=== PATIENT | male | born 1955 | race Two or more races ===

== ENCOUNTER → 2017-04-04 | Emergency (ER) | payer OTHER ==
[~2017-04-04] MED LIST: AMOX1TAB12 PO; CLONAZEPAM0.125 MG/T; CONEX TABLET1 EACH PO; FLONASE16 GM NASAL; LEXAPRO5 MG; TUSICOF LIQUID120 ML PO; TUSSIONEX PENNKI5 ML PO; XANAX1 MG PO
== END | disposition home or self-care (01) ==
LOC: ER 12:16
DX: K29.60 Other gastritis without bleeding (principal); R10.84 Generalized abdominal pain

== ENCOUNTER 2017-12-18 14:14 | Emergency (ER) | payer OTHER ==
[~2017-12-18] VITALS: Ht 175.3 cm; Wt 89.8 kg
[2017-12-18] MEDS ORDERED: FLAGYL500MG PO (14:24)
[2017-12-18] MEDS ORDERED: CIPRO500 MG PO (14:24)
== END 2017-12-18 20:51 | disposition home or self-care (01) ==
LOC: ER 14:14
DX: K57.32 Diverticulitis of large intestine without perforation or abscess without bleeding (principal); R10.32 Left lower quadrant pain

== ENCOUNTER 2020-02-03 12:21 | Emergency (ER) | payer OTHER ==
[~2020-02-03] VITALS: Ht 177.8 cm; Wt 88.5 kg
[~2020-02-03 12:21] MED LIST changes: +CIPRO500 MG PO; +FLAGYL500MG PO
== END 2020-02-03 16:53 | disposition home or self-care (01) ==
LOC: ER 12:21
DX: B34.9 Viral infection, unspecified (principal); Z20.828 Contact with and (suspected) exposure to other viral communicable diseases

== ENCOUNTER 2024-05-06 14:50 | Inpatient (IN) | payer OTHER ==
[~2024-05-06] VITALS: Ht 177.8 cm; Wt 86.2 kg
[~2024-05-06 14:50] MED LIST changes: +EFFEXOR XR75 MG
[2024-05-06] MEDS ORDERED: ONDANSETRON HCL 2 MG/ML VIAL IV STA (15:21)
[2024-05-06] MEDS ORDERED: 0.9 % SODIUM CHLORIDE 1,000 ML IV STA (15:21)
[2024-05-06] MEDS ORDERED: ONDANSETRON HCL 2 MG/ML VIAL ONE (15:33)
[2024-05-06] MEDS ORDERED: MORPHINE SULFATE 4 MG/ML CARTRIDGE IV STA (15:57)
[2024-05-06 16:05] LABS: HEMATOCRIT 52.1 % (39.0-48.0); HEMOGLOBIN 17.5 g/dL (13-16.00); MEAN CELL VOLUME 88.2 fL (80.0-100.00); MEAN CORPUSCULAR HEMOGLOBIN 29.6 pg (27.00-32.0); MEAN CORPUSCULAR HGB CONC 33.6 g/dl (32.0-36.0); PLATELET COUNT 241 K/uL (150-450); RED CELL DISTRIBUTION WIDTH 13.7 % (11.5-14.5)
[2024-05-06 16:29] LABS: ALBUMIN 4.8 gm/dL (3.4-5.0); BILIRUBIN TOTAL 1.3 mg/dL (0.3-1.2); CALCIUM 10.3 mg/dL (8.5-10.1); CREATININE SERUM 1.27 mg/dL (0.70-1.30); GFR 56.74; GLOBULINA 3.9 G/DL (2.4-3.5); POTASSIUM 4.15 mEq/L (3.5-5.1); TOTAL PROTEIN 8.7 gm/dL (6.4-8.2)
[2024-05-06] MEDS ORDERED: CIPROFLOXACIN IN 5 % DEXTROSE 400 MG/200 ML PIGGYBAG IV STA (16:56)
[2024-05-06] MEDS ORDERED: KETOROLAC TROMETHAMINE 30 MG VIAL IV ONE (17:45)
[2024-05-06] MEDS ORDERED: PROMETHAZINE HCL 50 MG/ML AMPUL IM ONE ×2 (17:45→18:16)
[2024-05-06] MEDS ORDERED: BARIUM SULFATE 450 ML ORAL.SUSP PO ONE (17:55)
[2024-05-06] MEDS ORDERED: KETOROLAC TROMETHAMINE 30 MG VIAL ONE (18:16)
[2024-05-06] MEDS ORDERED: METRONIDAZOLE/SODIUM CHLORIDE 100 ML IV SCH (19:56)
[2024-05-06] MEDS ORDERED: FAMOTIDINE/PF 20 MG in 0.9 % SODIUM CHLORIDE 8 ML IV PUSH SCH (19:57)
[2024-05-06] MEDS ORDERED: 0.9 % SODIUM CHLORIDE 1,000 ML IV SCH (20:00)
[2024-05-06] MEDS ORDERED: ACETAMINOPHEN 500 MG GEL..CAP PO PRN (20:00)
[2024-05-06] MEDS ORDERED: ONDANSETRON HCL 4 MG in 0.9 % SODIUM CHLORIDE 50 ML IV PRN (20:00)
[2024-05-06] MEDS ORDERED: MEPERIDINE HCL/PF 25 MG/ML VIAL IM PRN (20:00)
[2024-05-06] MEDS ORDERED: FAMOTIDINE/PF 20 MG/2 ML VIAL ONE (20:35)
[2024-05-06] MEDS ORDERED: METRONIDAZOLE/SODIUM CHLORIDE 500 MG/100 ML PIGGYBACK IV ONE (20:35)
[2024-05-06] MEDS ORDERED: CIPROFLOXACIN IN 5 % DEXTROSE 400 MG/200 ML PIGGYBAG IV ONE (20:35)
[2024-05-06 20:53] LABS: INR 1.18; PARTIAL THROMBOPLASTIN TIME 26.7 SECONDS (22.0-34.0); PROTHROMBIN TIME 12.7 SECONDS (9.0-11.5)
[2024-05-06] MEDS ORDERED: CIPROFLOXACIN IN 5 % DEXTROSE 200 ML IV SCH (21:00)
[2024-05-06 21:44] LABS: PH,URINE 5.5 (5.0-8.0); URINE APPEARANCE Clear; URINE BILIRRUBIN Negative (NEGATIVE); URINE BLOOD Negative; URINE COLOR Yellow; URINE GLUCOSE Negative (NEGATIVE); URINE KETONE Trace (NEGATIVE); URINE LEUKOCYTE Negative; URINE NITRATE Negative; URINE PROTEIN Trace (NEGATIVE); URINE UROBILINOGEN 0.2 E.U./dl
[2024-05-06 21:48] LABS: URINE RBC 20.1 uL (0.0-20.8); URINE WBC 2.5 uL (0.0-23.2)
[2024-05-06 21:50] LABS: URINE BACTERIA 0 uL (0.0-1933); URINE EPITHELIAL CELLS 0.4 uL (0.0-38.8)
[2024-05-06 23:52] VITALS: BP 128/69; O2SAT 95
[2024-05-07] MEDS ORDERED: ONDANSETRON HCL 2 MG/ML VIAL ONE (00:44)
[2024-05-07] MEDS ORDERED: FAMOTIDINE/PF 20 MG/2 ML VIAL ONE (00:44)
[2024-05-07 08:08] VITALS: BP 126/70; O2SAT 99
[2024-05-07] MEDS ORDERED: FAMOTIDINE/PF 20 MG in 0.9 % SODIUM CHLORIDE 8 ML IV PUSH SCH (09:00)
[2024-05-07] MEDS ORDERED: ENOXAPARIN SODIUM 40 MG/0.4 ML SYRINGE SUBCUTANEO SCH (09:00)
[2024-05-07] MEDS ORDERED: 0.9 % SODIUM CHLORIDE 1,000 ML IV SCH (09:00)
[2024-05-07 11:29] LABS: ob POSITIVE (NEGATIVE)
[2024-05-07 13:19] LABS: FECAL LEUKOCYTES POSITIVE (NEGATIVE)
[2024-05-07] MEDS ORDERED: CEFTRIAXONE SODIUM 2,000 MG VIAL IV SCH (17:00)
[2024-05-07 17:43] VITALS: BP 148/68
[2024-05-08 01:18] VITALS: BP 93/55
[2024-05-08 06:29] LABS: HEMATOCRIT 43.8 % (39.0-48.0); HEMOGLOBIN 15.2 g/dL (13-16.00); MEAN CELL VOLUME 86.9 fL (80.0-100.00); MEAN CORPUSCULAR HEMOGLOBIN 30.1 pg (27.00-32.0); MEAN CORPUSCULAR HGB CONC 34.6 g/dl (32.0-36.0); PLATELET COUNT 176 K/uL (150-450); RED BLOOD COUNT 5.04 M/uL (4.00-6.00); RED CELL DISTRIBUTION WIDTH 13.7 % (11.5-14.5)
[2024-05-08 07:03] LABS: ALBUMIN 3.5 gm/dL (3.4-5.0); BILIRUBIN TOTAL 0.54 mg/dL (0.3-1.2); CALCIUM 8.7 mg/dL (8.5-10.1); CREATININE SERUM 1.1 mg/dL (0.70-1.30); GFR 66.97; MAGNESIUM 2.1 mg/dL (1.8-2.4); PHOSPHOROUS 2.5 mg/dL (2.5-4.9); POTASSIUM 4.26 mEq/L (3.5-5.1); TOTAL PROTEIN 6.5 gm/dL (6.4-8.2)
[2024-05-08 07:08] LABS: C-REACTIVE PROTEIN 0.97 MG/DL (0.00-0.29)
[2024-05-08] MEDS ORDERED: HYOSCYAMINE SULFATE 0.125 MG TAB.SUBL SL PRN (07:45)
[2024-05-08 08:03] VITALS: BP 115/66
[2024-05-08] MEDS ORDERED: LACTOBACILLUS ACIDOPHILUS 1 CAP CAP PO SCH (09:00)
[2024-05-08] MEDS ORDERED: INTESTINEX680 M1 PO (11:46)
[2024-05-08] MEDS ORDERED: AMOXICILLIN875 MG PO (11:53)
[2024-05-08] MEDS ORDERED: FAMOtidine 40 MG TABLET PO SCH (21:00)
== END 2024-05-08 13:00 | disposition home or self-care (01) | DRG 392 ==
LOC: ER 14:51 → SEC-K 20:11 → MEDI 20:11
PROVIDERS: Emergency Medicine; General Practice; Internal Medicine Infectious Disease; ADMIT Internal Medicine; ATTEND Internal Medicine
PROC: BW21Y0Z Computerized Tomography (CT Scan) of Abdomen and Pelvis using Other Contrast, Unenhanced and Enhanced (ICD-10-PCS; principal; 2024-05-06)
DX: K52.9 Noninfective gastroenteritis and colitis, unspecified (principal); N17.9 Acute kidney failure, unspecified; R65.10 Systemic inflammatory response syndrome (SIRS) of non-infectious origin without acute organ dysfunction; R10.9 Unspecified abdominal pain; E86.0 Dehydration; R10.32 Left lower quadrant pain

== ENCOUNTER 2024-09-04 11:15 | Inpatient (IN) | payer OTHER ==
[~2024-09-04] VITALS: Ht 177.8 cm; Wt 86.2 kg
[~2024-09-04 11:15] MED LIST changes: +AMOXICILLIN875 MG PO; +INTESTINEX680 M1 PO
[2024-09-04] MEDS ORDERED: CLONAZEPAM0.5 M1 PO (13:08)
[2024-09-04 13:09] VITALS: BP 128/79
[2024-09-11] MEDS ORDERED: CEFTRIAXONE SODIUM 2,000 MG VIAL ONE (08:26)
[2024-09-11] MEDS ORDERED: METRONIDAZOLE/SODIUM CHLORIDE 500 MG/100 ML PIGGYBACK IV ONE ×2 (08:26→17:43)
[2024-09-11] MEDS ORDERED: BUPIVACAINE HCL/MPF 0.5% 30ML VIAL ONE (10:34)
[2024-09-11] MEDS ORDERED: LIDOCAINE HCL 1%/EPINEPHRINE 20ML VIAL IJ ONE (10:34)
[2024-09-11] MEDS ORDERED: SUGAMMADEX SODIUM 200 MG/2 ML VIAL IV ONE (12:58)
[2024-09-11] MEDS ORDERED: ONDANSETRON HCL 2 MG/ML VIAL IV PRN (14:00)
[2024-09-11] MEDS ORDERED: OxyCODONE HCL 5 MG TABLET (ROXICODONE) PO PRN (14:00)
[2024-09-11] MEDS ORDERED: ACETAMINOPHEN 500 MG GEL..CAP PO SCH (14:00)
[2024-09-11] MEDS ORDERED: MORPHINE SULFATE 4 MG/ML CARTRIDGE IV PRN (14:00)
[2024-09-11] MEDS ORDERED: DEXTROSE 50 % IN WATER 0.5 G/ML VIAL IV PRN (14:00)
[2024-09-11] MEDS ORDERED: 0.9 % SODIUM CHLORIDE 1,000 ML IV SCH (14:00)
[2024-09-11] MEDS ORDERED: MORPHINE SULFATE 4 MG/ML VIAL IV ONE ×2 (14:50→15:20)
[2024-09-11] MEDS ORDERED: GABAPENTIN 300 MG CAPSULE PO SCH (17:00)
[2024-09-11] MEDS ORDERED: HYOSCYAMINE SULFATE 0.125 MG TAB.SUBL SL SCH (17:00)
[2024-09-11] MEDS ORDERED: METRONIDAZOLE/SODIUM CHLORIDE 500 MG/100 ML PIGGYBACK IV SCH (17:00)
[2024-09-11 19:17] LABS: BASO % 0.2 % (0.1-1.2); EOS # 0.00 (0.04-0.54); EOS % 0.0 % (0.7-7.0); LYMPH # 0.70 (1.18-3.74); LYMPH % 4.1 % (19.3-53.1); MEAN PLATELET VOLUME 10.00 fl (9.4-12.4); MONO # 1.62 (0.24-0.82); MONO % 9.6 % (4.7-12.5); NEUT # 14.49 (1.56-6.13); NEUT % 85.6 % (34.0-71.1); RED CELL DISTRIBUTION WIDTH 13.1 % (11.6-14.4)
[2024-09-11 19:39] LABS: BUN CREA RATIO 13.0 (7.0-25.0); CREATININE SERUM 0.99 mg/dL (0.70-1.30); GFR 75.63; GLUCOSE FASTING 137.0 mg/dL (65-100); OSMOLALITY SERUM 282.0 MOSM/KG (275-295)
[2024-09-11 19:56] LABS: BAND MAN 8.0 %; LYMPHOCYTE MAN 8.0 %; MONOCYTE MAN 7.0 %; NEUTROPHILS MAN 75.0 %
[2024-09-11] MEDS ORDERED: CELECOXIB 200 MG CAPSULE PO SCH (21:00)
[2024-09-11] MEDS ORDERED: FAMOTIDINE/PF 20 MG/2 ML VIAL IV PUSH SCH (21:00)
[2024-09-12] VITALS: BP 149/75; O2SAT 95
[2024-09-12 06:43] LABS: BASO % 0.2 % (0.1-1.2); EOS # 0.00 (0.04-0.54); EOS % 0.0 % (0.7-7.0); LYMPH # 1.03 (1.18-3.74); LYMPH % 6.3 % (19.3-53.1); MEAN PLATELET VOLUME 10.50 fl (9.4-12.4); MONO # 1.77 (0.24-0.82); MONO % 10.9 % (4.7-12.5); NEUT # 13.36 (1.56-6.13); NEUT % 82.2 % (34.0-71.1); RED CELL DISTRIBUTION WIDTH 13.1 % (11.6-14.4)
[2024-09-12 07:16] LABS: BUN CREA RATIO 10.0 (7.0-25.0); CREATININE SERUM 0.94 mg/dL (0.70-1.30); GFR 80.29; GLUCOSE FASTING 134.0 mg/dL (65-100); OSMOLALITY SERUM 278.0 MOSM/KG (275-295)
[2024-09-12 08:30] VITALS: BP 125/73
[2024-09-12 15:53] VITALS: BP 136/67; O2SAT 96
[2024-09-12] MEDS ORDERED: ENOXAPARIN SODIUM 40 MG/0.4 ML SYRINGE SUBCUTANEO SCH (17:00)
[2024-09-13 00:14] VITALS: BP 124/66; O2SAT 96
[2024-09-13] MEDS ORDERED: ENOXAPARIN SODIUM 40 MG/0.4 ML SYRINGE SUBCUTANEO SCH (09:00)
[2024-09-13 09:48] VITALS: BP 170/80; O2SAT 96
[2024-09-13] MEDS ORDERED: TRAMADOL HCL 50 MG TABLET PO PRN (14:00)
[2024-09-13] MEDS ORDERED: CYCLOBENZAPRINE HCL 5 MG TABLET PO SCH (14:00)
[2024-09-13 16:00] VITALS: BP 127/75; O2SAT 95
[2024-09-14 01:30] VITALS: BP 139/80; O2SAT 99
[2024-09-14 08:41] VITALS: BP 134/77; O2SAT 94
[2024-09-14] MEDS ORDERED: HYOSCYAMINE0.125 M1 SL (09:39)
[2024-09-14] MEDS ORDERED: PEPCID AC20 MG PO (09:40)
[2024-09-14] MEDS ORDERED: ESOMEPRAZOLE MA40 MG PO (09:40)
[2024-09-14] MEDS ORDERED: INTESTINEX680 M1 PO (09:41)
[2024-09-14] MEDS ORDERED: CARAFATE1 GM PO (09:41)
== END 2024-09-14 11:53 | disposition home or self-care (01) | DRG 331 ==
LOC: SURH 09-11 06:10 → O/R 09-11 06:10 → SURH 09-11 07:00
PROVIDERS: ADMIT Surgery; ATTEND Surgery
PROC: 0DBP4ZZ Excision of Rectum, Percutaneous Endoscopic Approach (ICD-10-PCS; 2024-09-11)
PROC: 0DJD8ZZ Inspection of Lower Intestinal Tract, Via Natural or Artificial Opening Endoscopic (ICD-10-PCS; 2024-09-11)
PROC: 0DTN4ZZ Resection of Sigmoid Colon, Percutaneous Endoscopic Approach (ICD-10-PCS; principal; 2024-09-11 07:00)
DX: K57.32 Diverticulitis of large intestine without perforation or abscess without bleeding (principal); R19.4 Change in bowel habit